=== PATIENT | female | born 1940 | race Caucasian/White ===

== ENCOUNTER 2019-06-17 08:37 | Outpatient (RCR) | payer MEDICARE | END 2019-09-15 | disposition home or self-care (01) | LOC: CARD 08:37 | PROVIDERS: ATTEND Nurse Practitioner Family | DX: R55 Syncope and collapse (principal); I48.91 Unspecified atrial fibrillation ==

== ENCOUNTER 2020-09-19 15:00 | Observation (INO) | payer MEDICARE ==
[~2020-09-19] VITALS: Ht 145 cm; Wt 45.5 kg
[2020-09-19] MEDS ORDERED: LACTATED RINGERS 1,000 ML IV ONE (15:15)
--- NOTE | 2020-09-19 15:17 | ED Cough/URI ---
General Stated Complaint: AMS Source: patient, EMS Exam Limitations: no limitations History of Present Illness Date Seen by Provider: Sep 19, 2020 Time Seen by Provider: 14:51 Initial Comments Patient to the ER by EMS from her home near [place] with chief complaint that she is having in the past 3 days of a nonproductive cough, nausea vomiting and frequency of urination. She has had multiple exposures to people who have tested positive for COVID-19. She has not had a COVID-19 vaccination. She is had subjective fevers and chills. She has not been tested. She is not a smoker however she used to smoke. No chest pain diarrhea or constipation. She lives at home with her daughter who does not have any symptoms. Allergies and Home Medications Allergies Coded Allergies: No Known Drug Allergies (Unverified , 09/19/20) Patient Home Medication List Home Medication List Reviewed: Yes Review of Systems Review of Systems Constitutional: chills, fever, malaise, weakness EENTM: No ear discharge, No ear pain Respiratory: cough; No phlegm; short of breath; No wheezing Cardiovascular: No edema, No palpitations Gastrointestinal: No abdominal pain, No constipation, No diarrhea, No nausea, No vomiting Genitourinary: No discharge, No dysuria, No frequency : No Musculoskeletal: No back pain, No joint pain Skin: No pruritus, No rash Psychiatric/Neurological: Denies Headache, Denies Numbness All Other Systems Reviewed Negative Unless Noted: Yes Past Qkzqhkk-Esclci-Qqfokn Hx Patient Social History Tobacco Use?: No Tobacco type used: Cigarettes Smoking Status: Former Smoker Substance use?: No Physical Exam Vital Signs - First Documented 09/19/20 15:10 Temp 36.3 Pulse 96 Resp 16 B/P (MAP) 112/81 (91) Pulse Ox 94 O2 Delivery Room Air Capillary Refill : Height: '" Weight: lbs. oz. kg; BMI Method: General Appearance: mild distress, thin Eyes: Bilateral Eye Normal Inspection, Bilateral Eye PERRL, Bilateral Eye EOMI HEENT: PERRL/EOMI, normal ENT inspection, TMs normal, pharynx normal Neck: full range of motion, supple, normal inspection Respiratory: lungs clear, normal breath sounds, no respiratory distress, no acc essory muscle use Cardiovascular: normal peripheral pulses, regular rate, rhythm, no edema Gastrointestinal: normal bowel sounds, non tender, soft Extremities: non-tender, normal inspection, normal capillary refill Neurologic/Psychiatric: alert, normal mood/affect, oriented x 3 Skin: normal color, warm/dry Progress/Results/Core Measures Suspected Sepsis SIRS Temperature: Pulse: Respiratory Rate: Laboratory Tests 09/19/20 15:10: White Blood Count 4.3 Blood Pressure / Mean: Laboratory Tests 09/19/20 15:10: Creatinine 0.65, Platelet Count 168, Total Bilirubin 0.3 Results/Orders Lab Results Laboratory Tests Test 09/19/20 15:05 09/19/20 15:10 Range/Units Influenza Type A (RT-PCR) Not Detected Not Detecte Influenza Type B (RT-PCR) Not Detected Not Detecte SARS-CoV-2 RNA (RT-PCR) Detected H Not Detecte White Blood Count 4.3 4.3-11.0 10^3/uL Red Blood Count 3.98 3.80-5.11 10^6/uL Hemoglobin 13.2 11.5-16.0 g/dL Hematocrit 41 35-52 % Mean Corpuscular Volume 103 H 80-99 fL Mean Corpuscular Hemoglobin 33 25-34 pg Mean Corpuscular Hemoglobin Concent 32 32-36 g/dL Red Cell Distribution Width 12.4 10.0-14.5 % Platelet Count 168 130-400 10^3/uL Mean Platelet Volume 11.7 9.0-12.2 fL Immature Granulocyte % (Auto) 1 % Neutrophils (%) (Auto) 81 H 42-75 % Lymphocytes (%) (Auto) 13 12-44 % Monocytes (%) (Auto) 5 0-12 % Eosinophils (%) (Auto) 0 0-10 % Basophils (%) (Auto) 0 0-10 % Neutrophils # (Auto) 3.5 1.8-7.8 10^3/uL Lymphocytes # (Auto) 0.6 L 1.0-4.0 10^3/uL Monocytes # (Auto) 0.2 0.0-1.0 10^3/uL Eosinophils # (Auto) 0.0 0.0-0.3 10^3/uL Basophils # (Auto) 0.0 0.0-0.1 10^3/uL Immature Granulocyte # (Auto) 0.0 0.0-0.1 10^3/uL D-Dimer 0.77 H 0.00-0.49 UG/ML Sodium Level 139 135-145 MMOL/L Potassium Level 3.8 3.6-5.0 MMOL/L Chloride Level 101 98-107 MMOL/L Carbon Dioxide Level 22 21-32 MMOL/L Anion Gap 16 H 5-14 MMOL/L Blood Urea Nitrogen 14 7-18 MG/DL Creatinine 0.65 0.60-1.30 MG/DL Estimat Glomerular Filtration Rate 87 BUN/Creatinine Ratio 22 Glucose Level 84 70-105 MG/DL Calcium Level 8.8 8.5-10.1 MG/DL Corrected Calcium 9.3 8.5-10.1 MG/DL Total Bilirubin 0.3 0.1-1.0 MG/DL Aspartate Amino Transf (AST/SGOT) 42 H 5-34 U/L Alanine Aminotransferase (ALT/SGPT) 15 0-55 U/L Alkaline Phosphatase 64 40-136 U/L C-Reactive Protein High Sensitivity 1.02 H 0.00-0.50 MG/DL Total Protein 6.1 L 6.4-8.2 GM/DL Albumin 3.4 3.2-4.5 GM/DL Procalcitonin 0.06 <0.10 NG/ML My Orders Orders - HORTENCIA DELGADO Ed Iv/Invasive Line Start (09/19/20 15:10) Lactated Ringers (Lr 1000 Ml Iv Solution (09/19/20 15:15) Covid 19 Inhouse Test (09/19/20 15:10) Influenza A And B By Pcr (09/19/20 15:10) Cbc With Automated Diff (09/19/20 15:10) Comprehensive Metabolic Panel (09/19/20 15:10) Hs C Reactive Protein (09/19/20 15:10) Fibrin Degradation Products (09/19/20 15:10) Procalcitonin (Pct) (09/19/20 15:10) Ua Culture If Indicated (09/19/20 15:10) Ondansetron Injection (Zofran Injectio (09/19/20 15:30) Medications Given in ED Current Medications Medications Dose Ordered Sig/Darrin Route Start Time Stop Time Status Last Admin Dose Admin Lactated Ringer's 1,000 ml @ 0 mls/hr Q0M ONCE IV 09/19/20 15:15 09/19/20 15:16 DC 09/19/20 15:23 1,000 MLS/HR Ondansetron HCl 8 mg ONCE ONCE IVP 09/19/20 15:30 09/19/20 15:31 DC 09/19/20 15:24 8 MG Vital Signs/I&O 09/19/20 15:10 Temp 36.3 Pulse 96 Resp 16 B/P (MAP) 112/81 (91) Pulse Ox 94 O2 Delivery Room Air Capillary Refill : Progress Note #1: Time: 15:16 Progress Note Patient is in relatively minimal distress at this time. She has had some nausea and vomiting so going to give her Zofran, a liter of fluids which would be about 20 mL/kg to help rehydrate her and check some labs including a Covid screen, influenza and chest x-ray. Suspicious for a viral syndrome. Progress Note #2: Time: 16:39 Progress Note Discussed the case with the daughter and she says she is oxygen dependent and recently getting off of an exacerbation of COPD. She says she has not been able to adequately care for her mother for the past 3 days. The neck step was to move her mother into a assisted living home however since the last 3 days she is not been able to get her up off the commode or out of bed very easily because of the patient's progressive weakness she feels the patient would be better served in a half-way just has not started the process yet. Discussed the patient doing an observation stay for placement to a half-way to get help with her weakness and the patient is okay with this plan. Plan is to put her on observation for her physical debility likely worsened by her Covid. She is not being admitted for Covid directly. She does not need oxygen. We discussed the risks, benefits and alternatives to using monoclonal antibodies and their use under an emergency use authorization. We discussed inherent risks and benefits and the patient is okay with using these as well as her daughter. Diagnostic Imaging Diagonstic Imaging: Xray Plain Films/CT/US/NM/MRI: chest Reviewed: Reviewed by Me Departure Communication (Admissions) Time/Spoke to Admitting Phy: 16:40 Discussed the case with Dr. Moreira and he agrees to observe the patient and consult social welfare research worker for placement into a half-way. He also agrees with initiating monoclonal antibody treatment in the morning. Patient is being observed for her physical debility inability to go home and for placement into a half-way not directly for her Covid diagnosis and therefore would still be a candidate for monoclonal antibodies. Impression Primary Impression: COVID-19 Additional Impression: Physical debility Disposition: ADMITTED INPATIENT Condition: Stable Admissions Decision to Admit Reason: Admit from ER (General) Decision to Admit/Date: Sep 19, 2020 Time/Decision to Admit Time: 16:30 Departure-Patient Inst. Referrals: NO,LOCAL PHYSICIAN (PCP/Family) Primary Care Physician HORTENCIA DELGADO Sep 19, 2020 15:17
[2020-09-19 15:29] LABS: BASOPHILS % (AUTO) 0 % (0-10); EOSINOPHILS % (AUTO) 0 % (0-10); HEMATOCRIT 41 % (35-52); HEMOGLOBIN 13.2 g/dL (11.5-16.0); LYMPHOCYTES # (AUTO) 0.6 10^3/uL (1.0-4.0); LYMPHOCYTES % (AUTO) 13 % (12-44); MEAN CORPUSCULAR HEMOGLOBIN 33 pg (25-34); MEAN CORPUSCULAR HGB CONC 32 g/dL (32-36); MEAN CORPUSCULAR VOLUME 103 fL (80-99); MEAN PLATELET VOLUME 11.7 fL (9.0-12.2); MONOCYTES # (AUTO) 0.2 10^3/uL (0.0-1.0); MONOCYTES % (AUTO) 5 % (0-12); NEUTROPHILS # (AUTO) 3.5 10^3/uL (1.8-7.8); NEUTROPHILS % (AUTO) 81 % (42-75); PLATELET COUNT 168 10^3/uL (130-400); WHITE BLOOD COUNT 4.3 10^3/uL (4.3-11.0)
[2020-09-19] MEDS ORDERED: ONDANSETRON 4 MG/2 ML (SDV) Z0FRAN IVP ONE (15:30)
[2020-09-19 15:36] LABS: ALBUMIN 3.4 GM/DL (3.2-4.5); POTASSIUM 3.8 MMOL/L (3.6-5.0)
[2020-09-19 15:38] LABS: CALCIUM 8.8 MG/DL (8.5-10.1)
[2020-09-19 15:39] LABS: TOTAL PROTEIN 6.1 GM/DL (6.4-8.2)
[2020-09-19 15:40] LABS: BILIRUBIN,TOTAL 0.3 MG/DL (0.1-1.0)
[2020-09-19 15:43] LABS: CREATININE SERUM 0.65 MG/DL (0.60-1.30)
[2020-09-19 17:00] LABS: CLARITY,URINE SL CLOUDY; COLOR,URINE DARK YELLOW; GLUCOSE, URINE (UA) NEGATIVE (NEGATIVE); KETONES,URINE 2+ (NEGATIVE); LEUKOCYTE ESTERASE ,URINE 1+ (NEGATIVE); NITRITE,URINE NEGATIVE (NEGATIVE); PH,URINE 5.5 (5-9); PROTEIN,URINE 1+ (NEGATIVE)
[2020-09-19 17:14] LABS: BACTERIA,URINE MODERATE /HPF; BILIRUBIN,URINE 1+ (NEGATIVE); SQUAMOUS EPITHELIAL CELL,UR 0-2 /HPF
[2020-09-19 18:19] VITALS: BP 112/81
[2020-09-19] MEDS ORDERED: RT-ALBUTEROL HFA 8.5 GM INHALER IH PRN (18:30)
[2020-09-19] MEDS ORDERED: ONDANSETRON 4 MG/2 ML (SDV) Z0FRAN IV PRN (18:45)
[2020-09-19] MEDS ORDERED: ACETAMINOPHEN 325 MG TABLET PO PRN (18:45)
[2020-09-19] MEDS ORDERED: EPINEPHrine INJECTION 1 MG/ML AMP IM PRN (19:00)
[2020-09-19] MEDS ORDERED: diphenhydrAMINE 50 MG/ML INJ (BENADRYL) IVP PRN (19:00)
[2020-09-19] MEDS ORDERED: MELO15TA39 PO (19:04)
[2020-09-19] MEDS ORDERED: FERR324T PO (19:04)
[2020-09-19] MEDS ORDERED: METO-333 PO (19:04)
[2020-09-19] MEDS ORDERED: ATOR20TA49 PO (19:04)
[2020-09-19 19:07] VITALS: BP 152/92
[2020-09-19] MEDS ORDERED: CASIRIVIMAB/IMDEVIMAB 1,200 MG in NS (IVPB) 250 ML IV SCH (20:00)
[2020-09-19] MEDS ORDERED: CATHETER FLUSH 10 ML SYR IV PRN (20:15)
[2020-09-19] MEDS: CATHETER FLUSH 10 ML SYR IV SCH (20:42)
[2020-09-19 23:30] VITALS: BP 125/70
[2020-09-20] VITALS (8 sets, daily range): BP systolic 93–166; BP diastolic 57–85
[2020-09-20 05:51] LABS: BASOPHILS % (AUTO) 1 % (0-10); EOSINOPHILS % (AUTO) 0 % (0-10); HEMATOCRIT 40 % (35-52); HEMOGLOBIN 12.6 g/dL (11.5-16.0); LYMPHOCYTES # (AUTO) 0.9 10^3/uL (1.0-4.0); LYMPHOCYTES % (AUTO) 23 % (12-44); MEAN CORPUSCULAR HEMOGLOBIN 33 pg (25-34); MEAN CORPUSCULAR HGB CONC 32 g/dL (32-36); MEAN CORPUSCULAR VOLUME 105 fL (80-99); MEAN PLATELET VOLUME 11.7 fL (9.0-12.2); MONOCYTES # (AUTO) 0.2 10^3/uL (0.0-1.0); MONOCYTES % (AUTO) 6 % (0-12); NEUTROPHILS # (AUTO) 2.7 10^3/uL (1.8-7.8); NEUTROPHILS % (AUTO) 71 % (42-75); PLATELET COUNT 178 10^3/uL (130-400); WHITE BLOOD COUNT 3.8 10^3/uL (4.3-11.0)
[2020-09-20 06:07] LABS: POTASSIUM 3.3 MMOL/L (3.6-5.0)
[2020-09-20 06:08] LABS: CALCIUM 8.7 MG/DL (8.5-10.1)
[2020-09-20 06:13] LABS: CREATININE SERUM 0.69 MG/DL (0.60-1.30)
[2020-09-20] MEDS: CATHETER FLUSH 10 ML SYR IV SCH ×3 (06:29→21:19)
[2020-09-20] MEDS ORDERED: CASIRIVIMAB/IMDEVIMAB 1,200 MG in NS (IVPB) 250 ML IV ONE (11:00)
--- NOTE | 2020-09-20 11:18 | Physical Therapy Evaluation ---
PT Evaluation-General Medical Diagnosis Admission Date Sep 19, 2020 at 16:35 Medical Diagnosis: Covid Onset Date: Sep 19, 2020 Therapy Diagnosis Therapy Diagnosis: debility/weakness Precautions Precautions/Isolations: Contact Isolation, Droplet Isolation Referral Physician: Naomi Reason for Referral: Evaluation/Treatment Medical History Pertinent Medical History: COPD (O2 dependent at home per report) Current History EMS secondary to SOA, N&V (- vac) Reviewed History: Yes Social History Home: Single Level Current Living Status: Children Prior Prior Level of Function SCALE: Activities may be completed with or without assistive devices. 5-Iwfbdgrkdt-xnokvpn completes the activity by him/herself with no assistance from a helper. 5-Set-up or Clean-up Assistance-helper sets up or cleans up; patient completes activity. [place] assists only prior to or following the activity. 4-Supervision or Touching Assistance-helper provides verbal cues and/or touching/steadying and/or contact guard assistance as patient completes activity. Assistance may be provided throughout the activity or intermittently. 3-Partial/Moderate Assistance-helper does LESS THAN HALF the effort. [place] lifts, holds or supports trunk or limbs, but provides less than half the effort. 2-Substantial/Maximal Assistance-helper does MORE THAN HALF the effort. [place] lifts or holds trunk or limbs and provides more than half the effort. 1-Xgmtmeors-otjaiu does ALL the effort. Patient does none of the effort to complete the activity. Or, the assistance of 2 or more helpers is required for the patient to complete the activity. If activity was not attempted, code reason: 7-Patient Refused. 9-Not Applicable-not attempted and the patient did not perform the activity before the current illness, exacerbation or injury. 10-Not Attempted due to Environmental Limitations-(lack of equipment, weather restraints, etc.). 88-Not Attempted due to Medical Conditions or Safety Concerns. Bed Mobility: 6 Transfers (B,C,W/C): 6 Gait: 6 Indoor Mobility (Ambulation): Independent Prior Devices Use: Walker PT Evaluation-Current Subjective Patient agrees to PT. Objective Patient Orientation: Normal For Age ROM/Strength ROM Lower Extremities bilateral LE WFL Strength Lower Extremities 3+/5 grossly bilateral LE Integumentary/Posture Integumentary refer to nursing notes Bowel Incontinence: No Bladder Incontinence: No Posture kyphotic Neuromuscular (Tone, Coordination, Reflexes) grossly intact Sensory Vision: Functional Hearing: Impaired Transfers Roll Left to Right (QC): 6 Lying to Sitting/Side of Bed(Q: 6 Sit to Stand (QC): 4 Chair/Kme-nz-Ppdgm Xfer(QC): 4 Gait Does the Patient Walk?: Yes Mode of Locomotion: Walk Anticipated Mode of Locomotion: Walk Walk 10 feet (QC): 4 (SBA) Walk 50 ft with 2 Turns(QC): 4 (SBA) Walk 150 ft (QC): 4 (SBA) Distance: 150' in room Gait Assistive Device: FWW Comments/Gait Description shuffle gait sequence Balance Sitting Static: Normal Sitting Dynamic: Normal Standing Static: Fair Standing Dynamic: Fair Assessment/Needs 80 y.o. female, will be seen short term by skilled PT to address functional strength and mobility to ensure safe return to home or care facility at maximum LOF. Rehab Potential: Fair PT Director Of Business Services Goals Director Of Business Services Goals PT Director Of Business Services Goals Time Frame: Oct 02, 2020 Roll Left & Right (QC): 6 Sit to Lying (QC): 6 Lying-Sitting on Side/Bed(QC): 6 Sit to Stand (QC): 6 Chair/Hts-gs-Kbojv Xfer(QC): 6 Toilet Transfer (QC): 6 Does the Patient Walk: Yes Walk 10 feet (QC): 6 Walk 50ft with 2 Turns (QC): 6 Walk 150 ft (QC): 6 PT Plan Problem List Problem List: Activity Tolerance, Functional Strength, Safety, Balance, Gait, Transfer Treatment/Plan Treatment Plan: Continue Plan of Care Treatment Plan: Bed Mobility, Education, Functional Activity Jacob, Functional Strength, Gait, Safety, Therapeutic Exercise, Transfers Treatment Duration: Oct 02, 2020 Frequency: 5 times per week Estimated Hrs Per Day: .25 hour per day Patient and/or Family Agrees t: Yes Time/GCodes Time In: 1050 Time Out: 1103 Total Billed Treatment Time: 13 Total Billed Treatment 1 visit EVMod 13 min STEFANO CHAUDHARY PT Sep 20, 2020 11:18
--- NOTE | 2020-09-20 11:44 | History & Physical-Hospitalist ---
History of Present Illness HPI/Chief Complaint Pt is an 80yoCF HTN, HLD who presented to the ER due to SOB, cough, and weakness. She reports her symptoms started about 5 days ago. She has family members positive for COVID19 and was tested yesterday and is positive. She is unvaccinated against COVID. She has been quite weak and unable to care for herself at home. She was admitted due to her debility. She is not currently hypoxic. She feels better since yesterday and has no specific complaints. Source: patient Exam Limitations: no limitations Date Seen 09/20/20 Time Seen by a Provider: 11:44 Attending Physician Ana Moreira MD PCP No,Local Physician Referring Physician Date of Admission Sep 19, 2020 at 16:35 Home Medications & Allergies Home Medications Reviewed patient Home Medication Reconciliation performed by pharmacy medication reconciliations measurement technician and/or nursing. Patients Allergies have been reviewed. Allergies Allergies Coded Allergies No Known Drug Allergies (Unverified09/19/20) Past Wqvktpf-Hhvdjk-Ozxgfa Hx Patient Social History Tobacco Use?: No Tobacco type used: Cigarettes Smoking Status: Former Smoker Smokeless Tobacco Frequency: Never a User Use of E-Cig and/or Vaping dev: No Substance use?: No Alcohol Use?: No Pt feels they are or have been: No Immunizations Up To Date Tetanus Booster (TDap): Unknown Hepatitis A: No Hepatitis B: No Current Status status: No status: No Advance Directives: Yes Advance Directive Location: Home With Daughters Communicates: Verbally Primary Language: [place] Preferred Spoken Language: [place] Is interpretation needed?: No Implanted or Applied Medical D: None Review of Systems Constitutional: No chills, No fever; malaise EENTM: no symptoms reported Respiratory: cough, short of breath Cardiovascular: No chest pain Gastrointestinal: diarrhea, loss of appetite Genitourinary: No dysuria; frequency Musculoskeletal: muscle weakness Skin: no symptoms reported Psychiatric/Neurological: No Symptoms Reported Physical Exam Physical Exam Vital Signs Vital Signs - First Documented 09/19/20 09/19/20 15:10 18:19 Temp 36.3 Pulse 96 Resp 16 B/P (MAP) 112/81 (91) Pulse Ox 94 O2 Delivery Room Air FiO2 21 Capillary Refill : Less Than 3 Seconds Height, Weight, BMI Height: '" Weight: lbs. oz. kg; 23.82 BMI Method: General Appearance: No Apparent Distress, Chronically ill, Thin HEENT: PERRL/EOMI, Moist Mucous Membranes; No Scleral Icterus (L), No Scleral Icterus (R) Neck: Normal Inspection, Supple Respiratory: Lungs Clear, No Accessory Muscle Use, No Respiratory Distress Cardiovascular: Regular Rate, Rhythm, No JVD, No Murmur Gastrointestinal: Normal Bowel Sounds, Non Tender, Soft Extremity: Normal Capillary Refill, No Calf Tenderness, No Pedal Edema Neurologic/Psychiatric: Alert, Oriented x3, Normal Mood/Affect Results Results/Procedures Labs Laboratory Tests 09/19/20 15:10 09/20/20 05:34 Patient resulted labs reviewed. Assessment/Plan Admission Diagnosis Debility due to COVID19 Admission Status: Observation Reason for Inpatient Admission: see below Assessment and Plan Debility due to COVID19 quite weak on presenation but not hypoxic Will arrange for Regeneron today as still within window No other COVID treatment indicated at this time PT/OT May need placement pending hospital course HTN HLD Continue home meds when med rec done DVT ppx: Lovenox Diagnosis/Problems Diagnosis/Problems (1) COVID-19 Status: Acute (2) Physical debility Status: Acute ALON STEVE MD Sep 20, 2020 11:44
[2020-09-20] MEDS ORDERED: ENOXAPARIN 40 MG/0.4 ML (LOVENOX) SYR SQ SCH (13:00)
[2020-09-20] MEDS: cefTRIAXone 1,000 MG in WATER (STERILE) FOR INJECTION 10 ML IV SCH (13:34)
[2020-09-20] MEDS ORDERED: DOCU100C37 PO (14:28)
[2020-09-20] MEDS ORDERED: ACET-2267 PO (14:28)
[2020-09-20] MEDS ORDERED: ASPI325T32 PO (14:28)
--- NOTE | 2020-09-20 14:50 | Occupational Therapy Eval ---
OT Evaluation-General/PLF Medical Diagnosis Admission Date Sep 19, 2020 at 16:35 Medical Diagnosis: Covid Onset Date: Sep 19, 2020 Therapy Diagnosis Therapy Diagnosis: Weakness,Decreased ADl skills Precautions Precautions/Isolations: Contact Isolation, Droplet Isolation Weight Bear Status Weight Bearing Restriction: Weight Bearing/Tolerated Referral Physician: Dr. Moreira Referral Reason: Activity Tolerance, Self Care, Evaluation/Treatment, Strengthening/ROM Medical History Pertinent Medical History: COPD Current History Pt. from home via EMS with cough, nausea, and vomiting. Pt. not vaccinated. Reviewed History: Yes Social History Home: Single Level Current Living Status: Children (Daughter) Entry Into Home: Level Entry ADL-Prior Level of Function SCALE: Activities may be completed with or without assistive devices. 8-Fblqjcogan-juafcrj completes the activity by him/herself with no assistance from a helper. 5-Set-up or Clean-up Assistance-helper sets up or cleans up; patient completes activity. [place] assists only prior to or following the activity. 4-Supervision or Touching Assistance-helper provides verbal cues and/or touching/steadying and/or contact guard assistance as patient completes activity. Assistance may be provided throughout the activity or intermittently. 3-Partial/Moderate Assistance-helper does LESS THAN HALF the effort. [place] lifts, holds or supports trunk or limbs, but provides less than half the effort. 2-Substantial/Maximal Assistance-helper does MORE THAN HALF the effort. [place] lifts or holds trunk or limbs and provides more than half the effort. 7-Tnfaaxjfk-hltxou does ALL the effort. Patient does none of the effort to complete the activity. Or, the assistance of 2 or more helpers is required for the patient to complete the activity. If activity was not attempted, code reason: 7-Patient Refused. 9-Not Applicable-not attempted and the patient did not perform the activity before the current illness, exacerbation or injury. 10-Not Attempted due to Environmental Limitations-(lack of equipment, weather restraints, etc.). 88-Not Attempted due to Medical Conditions or Safety Concerns. ADL PLOF Comments Pt. states that she lives with her daughter. Her daughter assists her with bathing and sometimes dressing. However, she reports that when she is able, she plans to move to a "assisted" because her daughter can't take care of her. When OT asks what she means, she states that her daughter has COPD and is on oxygen. Self Care: Needed Some Help Functional Cognition: Independent DME/Equipment: Bath Chair, Tub/Shower DME/Equipment Comments Pt. has a 4 wheeled [address] with seat. Drive Self: No OT Current Status Subjective No pain reported. Appearance Pt. up in chair. She states that she has been up since this morning, and is comfortable. She declines going back to bed at this time. Mental Status/Objective Patient Orientation: Person, Place, Time, Situation Attachments: IV ADL-Treatment Eating (QC): 5 On/Off Footwear (QC): 6 Toileting Hygiene (QC): 4 (Per pt, she had went to the bathroom just earlier.) Other Treatments Pt. stood from chair with SBA. Ambulated with walker to the door and back, slow steady gait. No LOB noted. Pt. back in chair. Declines getting back to bed to rest. Pt. states that she is comfortable in chair. All needs met. Education OT Patient Education: Correct positioning, Modified ADL techniques, Progress toward Goal/Update tx plan, Purpose of tx/functional activities, Reviewed precautions, Rehab process, Transfer techniques Teaching Recipient: Patient Teaching Methods: Demonstration, Discussion Response to Teaching: Verbalize Understanding, Return Demonstration OT Psychiatry Adult Physician Goals Care Home Goals Time Frame: Sep 27, 2020 Eating (QC): 6 Oral Hygiene (QC): 6 Toileting Hygiene (QC): 6 Upper Body Dressing (QC): 4 Lower Body Dressing (QC): 4 On/Off Footwear (QC): 5 Additional Goals: 1-Demonstrate ADL Tasks, 2-Verbalize Understanding, 3- ImproveStrength/Jacob 1=Demonstrate adherence to instructed precautions during ADL tasks. 2=Patient will verbalize/demonstrate understanding of assistive devices/modifications for ADL. 3=Patient will improve strength/tolerance for activity to enable patient to perform ADL's. OT Education/Plan Problem List/Assessment Assessment: Decreased Activ Tolerance Discharge Recommendations Plan/Recommendations: Continue POC Therapy Discharge Recommendati: Post Acute OT Treatment Plan/Plan of Care Treatment,Training & Education: Yes Patient would benefit from OT for education, treatment and training to promote independence in ADL's, mobility, safety and/or upper extremity function for ADL's. Plan of Care: ADL Retraining, Functional Mobility, UE Funct Exercise/Act Treatment Duration: Sep 27, 2020 Frequency: 5 times per week Estimated Hrs Per Day: .25 hour per day Agreement: Yes Rehab Potential: Good Time/GCodes Start Time: 13:35 Stop Time: 13:55 Total Time Billed (hr/min): 20 Billed Treatment Time 1, DELROY NICOLE OT Sep 20, 2020 14:50
[2020-09-21 03:23] VITALS: BP 131/76
[2020-09-21] MEDS: CATHETER FLUSH 10 ML SYR IV SCH ×2 (05:46→14:51)
[2020-09-21 08:00] VITALS: BP 100/64
[2020-09-21 12:00] VITALS: BP 123/77
--- NOTE | 2020-09-21 12:04 | Physical Therapy Daily Note ---
PT Daily Note-Current Subjective Patient agrees to PT. Requests toilet use. Mental Status Patient Orientation: Normal For Age Transfers SCALE: Activities may be completed with or without assistive devices. 5-Xyppqvjsvd-wfatgaa completes the activity by him/herself with no assistance from a helper. 5-Set-up or Clean-up Assistance-helper sets up or cleans up; patient completes activity. [place] assists only prior to or following the activity. 4-Supervision or Touching Assistance-helper provides verbal cues and/or touching/steadying and/or contact guard assistance as patient completes activity. Assistance may be provided throughout the activity or intermittently. 3-Partial/Moderate Assistance-helper does LESS THAN HALF the effort. [place] lifts, holds or supports trunk or limbs, but provides less than half the effort. 2-Substantial/Maximal Assistance-helper does MORE THAN HALF the effort. [place] lifts or holds trunk or limbs and provides more than half the effort. 7-Lmeufasal-qufsmq does ALL the effort. Patient does none of the effort to complete the activity. Or, the assistance of 2 or more helpers is required for the patient to complete the activity. If activity was not attempted, code reason: 7-Patient Refused. 9-Not Applicable-not attempted and the patient did not perform the activity before the current illness, exacerbation or injury. 10-Not Attempted due to Environmental Limitations-(lack of equipment, weather restraints, etc.). 88-Not Attempted due to Medical Conditions or Safety Concerns. Lying to Sitting/Side of Bed(Q: 6 Sit to Stand (QC): 6 Chair/Jxb-me-Wcyxm Xfer(QC): 6 Gait Training Does the Patient Walk?: Yes Distance: 75' Walk 10 feet (QC): 6 Walk 50 ft with 2 Turns(QC): 6 Gait Assistive Device: FWW safe and functional with FWW use Exercises Seated Therapy Exercises: Ankle pumps, Long arc quads Seated Reps: 15 Assessment Patient up in recliner with need met. Improved mobility. PT Penitentiary Goals Penitentiary Goals PT Independent Jeweler Goals Time Frame: Oct 02, 2020 Roll Left & Right (QC): 6 Sit to Lying (QC): 6 Lying-Sitting on Side/Bed(QC): 6 Sit to Stand (QC): 6 Chair/Yud-zr-Dphnf Xfer(QC): 6 Toilet Transfer (QC): 6 Does the Patient Walk: Yes Walk 10 feet (QC): 6 Walk 50ft with 2 Turns (QC): 6 Walk 150 ft (QC): 6 PT Plan Treatment/Plan Treatment Plan: Continue Plan of Care Treatment Plan: Bed Mobility, Education, Functional Activity Jacob, Functional Strength, Gait, Safety, Therapeutic Exercise, Transfers Treatment Duration: Oct 02, 2020 Frequency: 5 times per week Estimated Hrs Per Day: .25 hour per day Patient and/or Family Agrees t: Yes Time/GCodes Time In: 1115 Time Out: 1127 Total Billed Treatment Time: 12 Total Billed Treatment 1 visit FA 12 min STEFANO CHAUDHARY PT Sep 21, 2020 12:04
[2020-09-21] MEDS: ENOXAPARIN 30 MG/0.3 ML (LOVENOX) SYR SC SCH (12:40)
[2020-09-21] MEDS: cefTRIAXone 1,000 MG in WATER (STERILE) FOR INJECTION 10 ML IV SCH (12:40)
--- NOTE | 2020-09-21 13:36 | Progress Note - Hospitalist ---
Subjective HPI/CC On Admission Date Seen by Provider: Sep 21, 2020 Time Seen by Provider: 13:33 Pt is an 80yoCF HTN, HLD who presented to the ER due to SOB, cough, and weakness. She reports her symptoms started about 5 days ago. She has family members positive for COVID19 and was tested yesterday and is positive. She is unvaccinated against COVID. She has been quite weak and unable to care for herself at home. She was admitted due to her debility. She is not currently hypoxic. She feels better since yesterday and has no specific complaints. Subjective/Events-last exam Pt reports doing well and feeling much better. She is requesting discharge home. Discussed with her that family is unable to care for her at home at this time. I attempted to call daughter but no answer. Objective Exam Vital Signs Vital Signs Date Time Temp Pulse Resp B/P (MAP) Pulse Ox O2 Delivery O2 Flow Rate FiO2 09/21/20 12:00 36.0 88 18 123/77 (92) 92 Room Air 09/21/20 08:00 0.00 09/19/20 18:19 21 Capillary Refill : Less Than 3 Seconds General Appearance: No Apparent Distress, Thin Respiratory: Lungs Clear, No Respiratory Distress Cardiovascular: Regular Rate, Rhythm, No Murmur Extremity: No Calf Tenderness, No Pedal Edema Neurologic/Psychiatric: Alert, Oriented x3 Results/Procedures Lab Patient resulted labs reviewed. Assessment/Plan Assessment and Plan Assess & Plan/Chief Complaint Debility due to COVID19 quite weak on presentation but not hypoxic s/p Regeneron 09/20 No other COVID treatment indicated at this time PT/OT May need placement pending hospital course Doing well HTN HLD Continue home meds when med rec done DVT ppx: Lovenox Diagnosis/Problems Diagnosis/Problems (1) COVID-19 Status: Acute (2) Physical debility Status: Acute ALON STEVE MD Sep 21, 2020 13:36
--- NOTE | 2020-09-21 13:52 | Occupational Ther Daily Note ---
OT Current Status-Daily Note Subjective No pain reported. Appearance Pt. up in chair. Agrees to work with OT. Mental Status/Objective Patient Orientation: Person, Place, Time, Situation ADL-Treatment Therapy Code Descriptions/Definitions Functional [place] Measure: 0=Not Assessed/NA 4=Minimal Assistance 1=Total Assistance 5=Supervision or Setup 2=Maximal Assistance 6=Modified [place] 3=Moderate Assistance 7=Complete IndependenceSCALE: Activities may be completed with or without assistive devices. 6-Rmjwqukeln-mmeajoi completes the activity by him/herself with no assistance from a helper. 5-Set-up or Clean-up Assistance-helper sets up or cleans up; patient completes activity. [place] assists only prior to or following the activity. 4-Supervision or Touching Assistance-helper provides verbal cues and/or touching/steadying and/or contact guard assistance as patient completes activity. Assistance may be provided throughout the activity or intermittently. 3-Partial/Moderate Assistance-helper does LESS THAN HALF the effort. [place] lifts, holds or supports trunk or limbs, but provides less than half the effort. 2-Substantial/Maximal Assistance-helper does MORE THAN HALF the effort. [place] lifts or holds trunk or limbs and provides more than half the effort. 5-Spyorwndx-ictcfx does ALL the effort. Patient does none of the effort to complete the activity. Or, the assistance of 2 or more helpers is required for the patient to complete the activity. If activity was not attempted, code reason: 7-Patient Refused. 9-Not Applicable-not attempted and the patient did not perform the activity before the current illness, exacerbation or injury. 10-Not Attempted due to Environmental Limitations-(lack of equipment, weather restraints, etc.). 88-Not Attempted due to Medical Conditions or Safety Concerns. Upper Body Dressing (QC): 4 (SBA in stance to doff shirt.) Lower Body Dressing (QC): 3 (Pt. able to stand, doff pants over hips, and then sit to pull off feet. She is unable to fully get them off feet, and so OT ass ists with doffing off feet.) On/Off Footwear: 5 (Pt. able to doff/don slippers with set up.) Toileting Hygiene (QC): 4 (CGA in stance to cleanse self after urination, and pull up brief over hips.) Toilet Transfer (QC): 4 (CGA to transfer to and from toilet.) Other Treatment Pt. up in chair. Agrees to work with OT. Ambulated to bathroom with CGA and walker. Toileted with CGA. Pt. up in chair with all needs met at end of session. Education OT Patient Education: Correct positioning, Modified ADL techniques, Progress toward Goal/Update tx plan, Purpose of tx/functional activities, Reviewed precautions, Rehab process, Transfer techniques Teaching Recipient: Patient Teaching Methods: Demonstration, Discussion Response to Teaching: Verbalize Understanding, Return Demonstration OT [facility] Goals News Commentator Goals Time Frame: Sep 27, 2020 Eating (QC): 6 Oral Hygiene (QC): 6 Toileting Hygiene (QC): 6 Upper Body Dressing (QC): 4 Lower Body Dressing (QC): 4 On/Off Footwear (QC): 5 Additional Goals: 1-Demonstrate ADL Tasks, 2-Verbalize Understanding, 3- ImproveStrength/Jacob 1=Demonstrate adherence to instructed precautions during ADL tasks. 2=Patient will verbalize/demonstrate understanding of assistive devices/modifications for ADL. 3=Patient will improve strength/tolerance for activity to enable patient to perform ADL's. OT Education/Plan Problem List/Assessment Assessment: Decreased Activ Tolerance, Impaired I ADL's, Impaired Self-Care Skills Discharge Recommendations Plan/Recommendations: Continue POC Therapy Discharge Recommendati: Post Acute OT Treatment Plan/Plan of Care Treatment,Training & Education: Yes Patient would benefit from OT for education, treatment and training to promote independence in ADL's, mobility, safety and/or upper extremity function for ADL's. Plan of Care: ADL Retraining, Functional Mobility, UE Funct Exercise/Act Treatment Duration: Sep 27, 2020 Frequency: 5 times per week Estimated Hrs Per Day: .25 hour per day Agreement: Yes Rehab Potential: Good Time/GCodes Start Time: 12:20 Stop Time: 12:40 Total Time Billed (hr/min): 20 Billed Treatment Time 1, ADL DELROY MONZON OT Sep 21, 2020 13:52
[2020-09-21 15:55] VITALS: BP 147/83
[2020-09-21 19:16] VITALS: BP 136/84
[2020-09-21] MEDS: meTOprolol TARTRATE 25 MG (LOPRESSOR) TABLET PO SCH (21:18)
[2020-09-21 23:10] VITALS: BP 140/71
[2020-09-22 08:00] VITALS: BP 119/70
[2020-09-22] MEDS ORDERED: NON-FORMULARY MEDICATION 1 EA EA (Meloxicam 15 MG) PO SCH (09:00)
[2020-09-22] MEDS: ASPIRIN E.C. 325 MG (ECOTRIN) TABLET PO SCH (09:11)
[2020-09-22] MEDS: meTOprolol TARTRATE 25 MG (LOPRESSOR) TABLET PO SCH ×2 (09:12→21:09)
[2020-09-22] MEDS: MELOXICAM 7.5 MG (MOBIC) TABLET PO SCH (09:12)
--- NOTE | 2020-09-22 10:39 | Physical Therapy Daily Note ---
PT Daily Note-Current Subjective Patient is very alert and cooperative on this date. Mental Status Patient Orientation: Person, Time, Situation Transfers SCALE: Activities may be completed with or without assistive devices. 6-Qjqtgvoqrg-vtqzkhm completes the activity by him/herself with no assistance from a helper. 5-Set-up or Clean-up Assistance-helper sets up or cleans up; patient completes activity. [place] assists only prior to or following the activity. 4-Supervision or Touching Assistance-helper provides verbal cues and/or touching/steadying and/or contact guard assistance as patient completes activity. Assistance may be provided throughout the activity or intermittently. 3-Partial/Moderate Assistance-helper does LESS THAN HALF the effort. [place] lifts, holds or supports trunk or limbs, but provides less than half the effort. 2-Substantial/Maximal Assistance-helper does MORE THAN HALF the effort. [place] lifts or holds trunk or limbs and provides more than half the effort. 4-Tldevbuys-mwyqbu does ALL the effort. Patient does none of the effort to complete the activity. Or, the assistance of 2 or more helpers is required for the patient to complete the activity. If activity was not attempted, code reason: 7-Patient Refused. 9-Not Applicable-not attempted and the patient did not perform the activity before the current illness, exacerbation or injury. 10-Not Attempted due to Environmental Limitations-(lack of equipment, weather restraints, etc.). 88-Not Attempted due to Medical Conditions or Safety Concerns. Sit to Lying (QC): 6 Lying to Sitting/Side of Bed(Q: 6 Sit to Stand (QC): 5 Toilet Transfer (QC): 5 Gait Training Does the Patient Walk?: Yes Distance: 150' in room Walk 10 feet (QC): 5 Walk 50 ft with 2 Turns(QC): 5 Walk 150 ft (QC): 5 Gait Assistive Device: FWW safe and functional gait sequence/patient is use to a 4WW and takes time to navigate FWW Exercises Seated Therapy Exercises: Ankle pumps, Long arc quads Seated Reps: 15 Assessment Patient returned to bed per her request. Patient tolerated treatment well. No signs of SOA. PT System Programmer Goals Halfway Goals PT Halfway Goals Time Frame: Oct 02, 2020 Roll Left & Right (QC): 6 Sit to Lying (QC): 6 Lying-Sitting on Side/Bed(QC): 6 Sit to Stand (QC): 6 Chair/Upf-zw-Qncub Xfer(QC): 6 Toilet Transfer (QC): 6 Does the Patient Walk: Yes Walk 10 feet (QC): 6 Walk 50ft with 2 Turns (QC): 6 Walk 150 ft (QC): 6 PT Plan Treatment/Plan Treatment Plan: Continue Plan of Care Treatment Plan: Bed Mobility, Education, Functional Activity Jacob, Functional Strength, Gait, Safety, Therapeutic Exercise, Transfers Treatment Duration: Oct 02, 2020 Frequency: 5 times per week Estimated Hrs Per Day: .25 hour per day Patient and/or Family Agrees t: Yes Time/GCodes Time In: 1002 Time Out: 1012 Total Billed Treatment Time: 12 Total Billed Treatment 1 visit FA 12 min STEFANO CHAUDHARY PT Sep 22, 2020 10:39
[2020-09-22] MEDS: cefTRIAXone 1,000 MG in WATER (STERILE) FOR INJECTION 10 ML IV SCH (13:16)
[2020-09-22] MEDS: ENOXAPARIN 30 MG/0.3 ML (LOVENOX) SYR SC SCH (13:17)
--- NOTE | 2020-09-22 14:28 | Progress Note - Hospitalist ---
Subjective HPI/CC On Admission Date Seen by Provider: Sep 22, 2020 Time Seen by Provider: 14:26 Pt is an 80yoCF HTN, HLD who presented to the ER due to SOB, cough, and weakness. She reports her symptoms started about 5 days ago. She has family members positive for COVID19 and was tested yesterday and is positive. She is unvaccinated against COVID. She has been quite weak and unable to care for herself at home. She was admitted due to her debility. She is not currently hypoxic. She feels better since yesterday and has no specific complaints. Subjective/Events-last exam pt reports doing well. No complaints. Doing well with PT. She reports she has not spoken to her daughter since admission. Objective Exam Vital Signs Vital Signs Date Time Temp Pulse Resp B/P (MAP) Pulse Ox O2 Delivery O2 Flow Rate FiO2 09/22/20 08:00 Room Air 09/22/20 08:00 35.6 78 18 119/70 (86) 95 09/21/20 08:00 0.00 09/19/20 18:19 21 Capillary Refill : Less Than 3 Seconds General Appearance: No Apparent Distress, WD/WN, Thin Respiratory: Lungs Clear, No Respiratory Distress Cardiovascular: Regular Rate, Rhythm, No Murmur Neurologic/Psychiatric: Alert, Oriented x3 Results/Procedures Lab Patient resulted labs reviewed. Assessment/Plan Assessment and Plan Assess & Plan/Chief Complaint Debility due to COVID19 doing very well s/p Regeneron 09/20 No other COVID treatment indicated at this time PT/OT Family considering placement as they are her normal caretakers and unable to care for her as they are sick with COVID HTN HLD Continue home meds DVT ppx: Lovenox Diagnosis/Problems Diagnosis/Problems (1) COVID-19 Status: Acute (2) Physical debility Status: Acute ALON STEVE MD Sep 22, 2020 14:28
--- NOTE | 2020-09-22 14:32 | Occupational Ther Daily Note ---
OT Current Status-Daily Note Subjective Pt alert, lying in bed. Pt agrees to therapy. No c/o pain. Mental Status/Objective Patient Orientation: Person, Place, Time, Situation ADL-Treatment Pt able to set up own meal and uses regular utensils. Pt then requested to use BSC. Supine <--> sit, independent. Sit<-->stand, SBA. SPT to/from BSC, SBA. Clothing manipulation and hygiene, SBA. After therapy, pt lying in bed with call light/phone in reach. All needs met in room. Therapy Code Descriptions/Definitions Functional [place] Measure: 0=Not Assessed/NA 4=Minimal Assistance 1=Total Assistance 5=Supervision or Setup 2=Maximal Assistance 6=Modified [place] 3=Moderate Assistance 7=Complete IndependenceSCALE: Activities may be completed with or without assistive devices. 7-Nunpxoieum-yadvqbq completes the activity by him/herself with no assistance from a helper. 5-Set-up or Clean-up Assistance-helper sets up or cleans up; patient completes activity. [place] assists only prior to or following the activity. 4-Supervision or Touching Assistance-helper provides verbal cues and/or touching/steadying and/or contact guard assistance as patient completes activity. Assistance may be provided throughout the activity or intermittently. 3-Partial/Moderate Assistance-helper does LESS THAN HALF the effort. [place] lifts, holds or supports trunk or limbs, but provides less than half the effort. 2-Substantial/Maximal Assistance-helper does MORE THAN HALF the effort. [place] lifts or holds trunk or limbs and provides more than half the effort. 9-Vnducrhhk-jucvpq does ALL the effort. Patient does none of the effort to complete the activity. Or, the assistance of 2 or more helpers is required for the patient to complete the activity. If activity was not attempted, code reason: 7-Patient Refused. 9-Not Applicable-not attempted and the patient did not perform the activity before the current illness, exacerbation or injury. 10-Not Attempted due to Environmental Limitations-(lack of equipment, weather restraints, etc.). 88-Not Attempted due to Medical Conditions or Safety Concerns. Eating (QC): 6 On/Off Footwear: 5 (Set up only) Toileting Hygiene (QC): 4 Toilet Transfer (QC): 4 OT Senior Living Goals Senior Living Goals Time Frame: Sep 27, 2020 Eating (QC): 6 Oral Hygiene (QC): 6 Toileting Hygiene (QC): 6 Upper Body Dressing (QC): 4 Lower Body Dressing (QC): 4 On/Off Footwear (QC): 5 Additional Goals: 1-Demonstrate ADL Tasks, 2-Verbalize Understanding, 3- ImproveStrength/Jacob 1=Demonstrate adherence to instructed precautions during ADL tasks. 2=Patient will verbalize/demonstrate understanding of assistive devices/modifications for ADL. 3=Patient will improve strength/tolerance for activity to enable patient to perform ADL's. OT Education/Plan Problem List/Assessment Assessment: Decreased Activ Tolerance Discharge Recommendations Plan/Recommendations: Continue POC Treatment Plan/Plan of Care Patient would benefit from OT for education, treatment and training to promote independence in ADL's, mobility, safety and/or upper extremity function for ADL's. Plan of Care: ADL Retraining, Functional Mobility, UE Funct Exercise/Act Treatment Duration: Sep 27, 2020 Frequency: 5 times per week Estimated Hrs Per Day: .25 hour per day Agreement: Yes Rehab Potential: Good Time/GCodes Start Time: 13:10 Stop Time: 13:33 Total Time Billed (hr/min): 23 Billed Treatment Time 1 visit-FA 2 (23 min) LJ REDD Sep 22, 2020 14:31
[2020-09-22 15:52] VITALS: BP 103/58
[2020-09-22] MEDS: CEPHALEXIN 250 MG (KEFLEX) CAP PO SCH (21:09)
[2020-09-22 23:40] VITALS: BP 141/77
[2020-09-23 08:15] VITALS: BP 143/72
[2020-09-23] MEDS: ASPIRIN E.C. 325 MG (ECOTRIN) TABLET PO SCH (09:16)
[2020-09-23] MEDS: MELOXICAM 7.5 MG (MOBIC) TABLET PO SCH (09:16)
[2020-09-23] MEDS: meTOprolol TARTRATE 25 MG (LOPRESSOR) TABLET PO SCH ×2 (09:16→20:06)
[2020-09-23] MEDS: CEPHALEXIN 250 MG (KEFLEX) CAP PO SCH ×2 (09:16→20:06)
--- NOTE | 2020-09-23 11:04 | Physical Therapy Daily Note ---
PT Daily Note-Current Subjective Patient agrees to PT. Mental Status Patient Orientation: Person, Time, Situation Transfers SCALE: Activities may be completed with or without assistive devices. 5-Mjuejsixqa-mdrohjx completes the activity by him/herself with no assistance from a helper. 5-Set-up or Clean-up Assistance-helper sets up or cleans up; patient completes activity. [place] assists only prior to or following the activity. 4-Supervision or Touching Assistance-helper provides verbal cues and/or touching/steadying and/or contact guard assistance as patient completes activity. Assistance may be provided throughout the activity or intermittently. 3-Partial/Moderate Assistance-helper does LESS THAN HALF the effort. [place] lifts, holds or supports trunk or limbs, but provides less than half the effort. 2-Substantial/Maximal Assistance-helper does MORE THAN HALF the effort. [place] lifts or holds trunk or limbs and provides more than half the effort. 1-Vlbagdtur-[place] does ALL the effort. Patient does none of the effort to c omplete the activity. Or, the assistance of 2 or more helpers is required for the patient to complete the activity. If activity was not attempted, code reason: 7-Patient Refused. 9-Not Applicable-not attempted and the patient did not perform the activity before the current illness, exacerbation or injury. 10-Not Attempted due to Environmental Limitations-(lack of equipment, weather restraints, etc.). 88-Not Attempted due to Medical Conditions or Safety Concerns. Sit to Lying (QC): 6 Lying to Sitting/Side of Bed(Q: 6 Sit to Stand (QC): 6 Gait Training Does the Patient Walk?: Yes Distance: 150' Walk 10 feet (QC): 5 Walk 50 ft with 2 Turns(QC): 5 Walk 150 ft (QC): 5 Gait Assistive Device: FWW safe and functional with no deviation network programmer reports patient is up in room to toilet independently. PT to see patient x 1 more session. PT Short Term Goals Short Term Goals Time Frame: Sep 23, 2020 PT Voltage Tester Goals [facility]dc Goals PT Voltage Tester Goals Time Frame: Oct 02, 2020 Roll Left & Right (QC): 6 Sit to Lying (QC): 6 Lying-Sitting on Side/Bed(QC): 6 Sit to Stand (QC): 6 Chair/Hyo-tu-Xqqug Xfer(QC): 6 Toilet Transfer (QC): 6 Does the Patient Walk: Yes Walk 10 feet (QC): 6 Walk 50ft with 2 Turns (QC): 6 Walk 150 ft (QC): 6 PT Plan Treatment/Plan Treatment Plan: Continue Plan of Care Treatment Plan: Bed Mobility, Education, Functional Activity Jacob, Functional Strength, Gait, Safety, Therapeutic Exercise, Transfers Treatment Duration: Oct 02, 2020 Frequency: 5 times per week Estimated Hrs Per Day: .25 hour per day Patient and/or Family Agrees t: Yes Time/GCodes Time In: 1015 Time Out: 28 Total Billed Treatment Time: 13 Total Billed Treatment 1 visit FA 13 min STEFANO CHAUDHARY PT Sep 23, 2020 11:04
--- NOTE | 2020-09-23 11:33 | Occupational Ther Daily Note ---
OT Current Status-Daily Note Subjective Pt alert, lying in bed. Pt agrees to complete OT though did not want to get out of bed. No c/o pain. Mental Status/Objective Patient Orientation: Person ADL-Treatment Therapy Code Descriptions/Definitions Functional [place] Measure: 0=Not Assessed/NA 4=Minimal Assistance 1=Total Assistance 5=Supervision or Setup 2=Maximal Assistance 6=Modified [place] 3=Moderate Assistance 7=Complete IndependenceSCALE: Activities may be completed with or without assistive devices. 1-Hjppjwzdhb-vovtiqx completes the activity by him/herself with no assistance from a helper. 5-Set-up or Clean-up Assistance-helper sets up or cleans up; patient completes activity. [place] assists only prior to or following the activity. 4-Supervision or Touching Assistance-helper provides verbal cues and/or touching /steadying and/or contact guard assistance as patient completes activity. Assistance may be provided throughout the activity or intermittently. 3-Partial/Moderate Assistance-helper does LESS THAN HALF the effort. [place] lifts, holds or supports trunk or limbs, but provides less than half the effort. 2-Substantial/Maximal Assistance-helper does MORE THAN HALF the effort. [place] lifts or holds trunk or limbs and provides more than half the effort. 6-Zkmwhdzdx-afixed does ALL the effort. Patient does none of the effort to complete the activity. Or, the assistance of 2 or more helpers is required for the patient to complete the activity. If activity was not attempted, code reason: 7-Patient Refused. 9-Not Applicable-not attempted and the patient did not perform the activity before the current illness, exacerbation or injury. 10-Not Attempted due to Environmental Limitations-(lack of equipment, weather restraints, etc.). 88-Not Attempted due to Medical Conditions or Safety Concerns. Other Treatment Pt able to complete B UE exercises against gravity in while sitting up in bed. Skilled instruction for correct technique while completing horizontal shldr abd/add, internal/ext shldr rotation, bicep curls 1 set 15 reps. After therapy, pt lying in bed with call light/phone in reach. All needs met in room. OT Electric Meter Setter Goals Electric Meter Setter Goals Time Frame: Sep 27, 2020 Eating (QC): 6 Oral Hygiene (QC): 6 Toileting Hygiene (QC): 6 Upper Body Dressing (QC): 4 Lower Body Dressing (QC): 4 On/Off Footwear (QC): 5 Additional Goals: 1-Demonstrate ADL Tasks, 2-Verbalize Understanding, 3- ImproveStrength/Jacob 1=Demonstrate adherence to instructed precautions during ADL tasks. 2=Patient will verbalize/demonstrate understanding of assistive devices/modifications for ADL. 3=Patient will improve strength/tolerance for activity to enable patient to perform ADL's. OT Education/Plan Problem List/Assessment Assessment: Decreased Activ Tolerance, Decreased UE Strength Discharge Recommendations Plan/Recommendations: Continue POC Treatment Plan/Plan of Care Patient would benefit from OT for education, treatment and training to promote independence in ADL's, mobility, safety and/or upper extremity function for ADL's. Plan of Care: ADL Retraining, Functional Mobility, UE Funct Exercise/Act Treatment Duration: Sep 27, 2020 Frequency: 5 times per week Estimated Hrs Per Day: .25 hour per day Agreement: Yes Rehab Potential: Good Time/GCodes Start Time: 11:20 Stop Time: 11:30 Total Time Billed (hr/min): 10 Billed Treatment Time 1 visit-EX 1 (10 min) LJ REDD Sep 23, 2020 11:33
[2020-09-23] MEDS: ENOXAPARIN 30 MG/0.3 ML (LOVENOX) SYR SC SCH (12:32)
--- NOTE | 2020-09-23 15:01 | Progress Note - Hospitalist ---
Subjective HPI/CC On Admission Date Seen by Provider: Sep 23, 2020 Time Seen by Provider: 15:01 Pt is an 80yoCF HTN, HLD who presented to the ER due to SOB, cough, and weakness. She reports her symptoms started about 5 days ago. She has family members positive for COVID19 and was tested yesterday and is positive. She is unvaccinated against COVID. She has been quite weak and unable to care for herself at home. She was admitted due to her debility. She is not currently hypoxic. She feels better since yesterday and has no specific complaints. Subjective/Events-last exam Pt reports feeling well. I was able to talk to her daughter who is sick at home with COVID and her just got admitted for COVID. Discussed plan with patient and daughter regarding discharge plan and that pt is improving but we understand that we have to have a safe discharge plan and family is unable to care for her at this time. Objective Exam Vital Signs Vital Signs Date Time Temp Pulse Resp B/P (MAP) Pulse Ox O2 Delivery O2 Flow Rate FiO2 09/23/20 08:15 36.1 72 16 143/72 (95) 95 Room Air 09/21/20 08:00 0.00 09/19/20 18:19 21 Capillary Refill : Less Than 3 Seconds General Appearance: No Apparent Distress, Thin Respiratory: Lungs Clear, No Respiratory Distress Cardiovascular: Regular Rate, Rhythm, No Murmur Neurologic/Psychiatric: Alert, Oriented x3 Results/Procedures Lab Patient resulted labs reviewed. Assessment/Plan Assessment and Plan Assess & Plan/Chief Complaint Debility due to COVID19 doing very well s/p Regeneron 09/20 No other COVID treatment indicated at this time PT/OT Family considering placement as they are her normal caretakers and unable to care for her as they are sick with COVID Social work consulted and exhausting all options for discharge, no facility is willing to take her at this time as she is COVID positive, [facility] unable to accept for transfer due to staffing, family is pursuing private pay options as well HTN HLD Continue home meds DVT ppx: Lovenox Diagnosis/Problems Diagnosis/Problems (1) COVID-19 Status: Acute (2) Physical debility Status: Acute ALON STEVE MD Sep 23, 2020 15:01
[2020-09-23 15:52] VITALS: BP 138/77
[2020-09-23 23:20] VITALS: BP 129/86
[2020-09-24 08:00] VITALS: BP 152/92
[2020-09-24] MEDS: MELOXICAM 7.5 MG (MOBIC) TABLET PO SCH (10:34)
[2020-09-24] MEDS: ASPIRIN E.C. 325 MG (ECOTRIN) TABLET PO SCH (10:34)
[2020-09-24] MEDS: meTOprolol TARTRATE 25 MG (LOPRESSOR) TABLET PO SCH ×2 (10:34→20:46)
[2020-09-24] MEDS: CEPHALEXIN 250 MG (KEFLEX) CAP PO SCH ×2 (10:35→20:46)
--- NOTE | 2020-09-24 11:49 | Occupational Ther Daily Note ---
OT Current Status-Daily Note Subjective Pt alert, lying in bed. Pt agrees to therapy. No c/o pain. Mental Status/Objective Patient Orientation: Person, Place, Time, Situation ADL-Treatment Supine to EOB independently. Pt is independent with toileting and toilet transfer to [facility] beside bed. After set up, pt able to complete sponge bath by self. Pt dons/doffs lower body clothing by self after set up. Pt don/doffs upp er body clothing by self. Pt able to ambulate around room independently using FWW. After session, pt sitting in recliner with call light/phone in reach. All needs met in room. Therapy Code Descriptions/Definitions Functional [place] Measure: 0=Not Assessed/NA 4=Minimal Assistance 1=Total Assistance 5=Supervision or Setup 2=Maximal Assistance 6=Modified [place] 3=Moderate Assistance 7=Complete IndependenceSCALE: Activities may be completed with or without assistive devices. 6-Hmwkmgsqzq-ucxlojq completes the activity by him/herself with no assistance from a helper. 5-Set-up or Clean-up Assistance-helper sets up or cleans up; patient completes activity. [place] assists only prior to or following the activity. 4-Supervision or Touching Assistance-helper provides verbal cues and/or touching/steadying and/or contact guard assistance as patient completes activity. Assistance may be provided throughout the activity or intermittently. 3-Partial/Moderate Assistance-helper does LESS THAN HALF the effort. [place] lifts, holds or supports trunk or limbs, but provides less than half the effort. 2-Substantial/Maximal Assistance-helper does MORE THAN HALF the effort. [place] lifts or holds trunk or limbs and provides more than half the effort. 4-Yunqhhpgp-lhjwim does ALL the effort. Patient does none of the effort to complete the activity. Or, the assistance of 2 or more helpers is required for the patient to complete the activity. If activity was not attempted, code reason: 7-Patient Refused. 9-Not Applicable-not attempted and the patient did not perform the activity before the current illness, exacerbation or injury. 10-Not Attempted due to Environmental Limitations-(lack of equipment, weather restraints, etc.). 88-Not Attempted due to Medical Conditions or Safety Concerns. Shower/Bathe Self (QC): 5 Upper Body Dressing (QC): 5 Lower Body Dressing (QC): 5 On/Off Footwear: 6 Toileting Hygiene (QC): 6 Toilet Transfer (QC): 6 OT Residential Goals Lifestyle Block Farmer Goals Time Frame: Sep 27, 2020 Eating (QC): 6 Oral Hygiene (QC): 6 Toileting Hygiene (QC): 6 Upper Body Dressing (QC): 4 Lower Body Dressing (QC): 4 On/Off Footwear (QC): 5 Additional Goals: 1-Demonstrate ADL Tasks, 2-Verbalize Understanding, 3-ImproveStrength/Jacob 1=Demonstrate adherence to instructed precautions during ADL tasks. 2=Patient will verbalize/demonstrate understanding of assistive devices/modifications for ADL. 3=Patient will improve strength/tolerance for activity to enable patient to perform ADL's. OT Education/Plan Problem List/Assessment Assessment: Decreased Activ Tolerance Discharge Recommendations Plan/Recommendations: Continue POC Treatment Plan/Plan of Care Patient would benefit from OT for education, treatment and training to promote independence in ADL's, mobility, safety and/or upper extremity function for ADL's. Plan of Care: ADL Retraining, Functional Mobility, UE Funct Exercise/Act Treatment Duration: Sep 27, 2020 Frequency: 5 times per week Estimated Hrs Per Day: .25 hour per day Agreement: Yes Rehab Potential: Good Time/GCodes Start Time: 11:10 Stop Time: 11:33 Total Time Billed (hr/min): 23 Billed Treatment Time 1 visit-ADL 2 (23 min) LJ REDD Sep 24, 2020 11:49
--- NOTE | 2020-09-24 11:50 | Physical Therapy Daily Note ---
PT Daily Note-Current Subjective Patient agrees to PT. OT present. Transfers SCALE: Activities may be completed with or without assistive devices. 0-Skpfckpwhm-wwrhbco completes the activity by him/herself with no assistance from a helper. 5-Set-up or Clean-up Assistance-helper sets up or cleans up; patient completes activity. [place] assists only prior to or following the activity. 4-Supervision or Touching Assistance-helper provides verbal cues and/or touching/steadying and/or contact guard assistance as patient completes activity. Assistance may be provided throughout the activity or intermittently. 3-Partial/Moderate Assistance-helper does LESS THAN HALF the effort. [place] li fts, holds or supports trunk or limbs, but provides less than half the effort. 2-Substantial/Maximal Assistance-helper does MORE THAN HALF the effort. [place] lifts or holds trunk or limbs and provides more than half the effort. 7-Xqrgwteeg-tnydxr does ALL the effort. Patient does none of the effort to complete the activity. Or, the assistance of 2 or more helpers is required for the patient to complete the activity. If activity was not attempted, code reason: 7-Patient Refused. 9-Not Applicable-not attempted and the patient did not perform the activity before the current illness, exacerbation or injury. 10-Not Attempted due to Environmental Limitations-(lack of equipment, weather restraints, etc.). 88-Not Attempted due to Medical Conditions or Safety Concerns. Sit to Stand (QC): 4 Chair/Fdx-am-Heblk Xfer(QC): 4 Toilet Transfer (QC): 4 Gait Training Does the Patient Walk?: Yes Distance: 80' Walk 10 feet (QC): 4 Walk 50 ft with 2 Turns(QC): 4 Gait Assistive Device: FWW SBA to modified independent LOF with all mobility Assessment Patient tolerated treatment well and is up in recliner with needs met. PT Short Term Goals Short Term Goals Time Frame: Sep 23, 2020 PT [facility] Goals [facility] Goals PT [facility] Goals Time Frame: Oct 02, 2020 Roll Left & Right (QC): 6 Sit to Lying (QC): 6 Lying-Sitting on Side/Bed(QC): 6 Sit to Stand (QC): 6 Chair/Bso-qp-Dfuwx Xfer(QC): 6 Toilet Transfer (QC): 6 Does the Patient Walk: Yes Walk 10 feet (QC): 6 Walk 50ft with 2 Turns (QC): 6 Walk 150 ft (QC): 6 PT Plan Treatment/Plan Treatment Plan: Continue Plan of Care Treatment Plan: Bed Mobility, Education, Functional Activity Jacob, Functional Strength, Gait, Safety, Therapeutic Exercise, Transfers Treatment Duration: Oct 02, 2020 Frequency: 5 times per week Estimated Hrs Per Day: .25 hour per day Patient and/or Family Agrees t: Yes Time/GCodes Time In: 1115 Time Out: 1130 Total Billed Treatment Time: 15 Total Billed Treatment 1 visit FA 15 min STEFANO CHAUDHARY PT Sep 24, 2020 11:50
--- NOTE | 2020-09-24 13:20 | Progress Note - Hospitalist ---
Subjective HPI/CC On Admission Date Seen by Provider: Sep 24, 2020 Time Seen by Provider: 13:19 Pt is an 80yoCF HTN, HLD who presented to the ER due to SOB, cough, and weakness. She reports her symptoms started about 5 days ago. She has family members positive for COVID19 and was tested yesterday and is positive. She is unvaccinated against COVID. She has been quite weak and unable to care for herself at home. She was admitted due to her debility. She is not currently hypoxic. She feels better since yesterday and has no specific complaints. Subjective/Events-last exam Pt reports feeling well. Discussed plan with her for placement and she is agreeable. She comes out of isolation on 09/26 at midnight. Objective Exam Vital Signs Vital Signs Date Time Temp Pulse Resp B/P (MAP) Pulse Ox O2 Delivery O2 Flow Rate FiO2 09/24/20 08:00 95 Room Air 09/24/20 08:00 35.6 82 18 152/92 (112) 09/21/20 08:00 0.00 09/19/20 18:19 21 Capillary Refill : Less Than 3 Seconds General Appearance: No Apparent Distress, Chronically ill Respiratory: Lungs Clear, No Respiratory Distress Cardiovascular: Regular Rate, Rhythm, No Murmur Neurologic/Psychiatric: Alert, Oriented x3 Results/Procedures Lab Patient resulted labs reviewed. Assessment/Plan Assessment and Plan Assess & Plan/Chief Complaint Debility due to COVID19 doing very well s/p Regeneron 09/20 No other COVID treatment indicated at this time PT/OT Hopeful for placement on Sunday when out of isolation HTN HLD Continue home meds DVT ppx: Lovenox Diagnosis/Problems Diagnosis/Problems (1) COVID-19 Status: Acute (2) Physical debility Status: Acute ALON STEVE MD Sep 24, 2020 13:20
[2020-09-24] MEDS: ENOXAPARIN 30 MG/0.3 ML (LOVENOX) SYR SC SCH (14:40)
[2020-09-24 16:49] VITALS: BP 144/77
[2020-09-24 20:44] VITALS: BP 119/70
[2020-09-24 23:30] VITALS: BP 127/73
[2020-09-25 08:18] VITALS: BP 139/73
[2020-09-25] MEDS: meTOprolol TARTRATE 25 MG (LOPRESSOR) TABLET PO SCH ×2 (09:09→19:50)
[2020-09-25] MEDS: ASPIRIN E.C. 325 MG (ECOTRIN) TABLET PO SCH (09:09)
[2020-09-25] MEDS: CEPHALEXIN 250 MG (KEFLEX) CAP PO SCH ×2 (09:09→19:50)
[2020-09-25] MEDS: MELOXICAM 7.5 MG (MOBIC) TABLET PO SCH (09:10)
--- NOTE | 2020-09-25 11:35 | Physical Therapy Progress Note ---
Therapy Progress Note Pt in bed. States, "I would be doing much better if you all would leave me alone and just let me rest". Educated on importance of OOB and increasing activity, Pt continued to decline PT. ISELA SHANKAR DPT Sep 25, 2020 11:35
[2020-09-25] MEDS: ENOXAPARIN 30 MG/0.3 ML (LOVENOX) SYR SC SCH (11:48)
--- NOTE | 2020-09-25 13:34 | Progress Note - Hospitalist ---
Subjective HPI/CC On Admission Date Seen by Provider: Sep 25, 2020 Time Seen by Provider: 13:29 Pt is an 80yoCF HTN, HLD who presented to the ER due to SOB, cough, and weakness. She reports her symptoms started about 5 days ago. She has family members positive for COVID19 and was tested yesterday and is positive. She is unvaccinated against COVID. She has been quite weak and unable to care for herself at home. She was admitted due to her debility. She is not currently hypoxic. She feels better since yesterday and has no specific complaints. Subjective/Events-last exam Pt reports doing well. No complaints. Discussed plan still to wait until she is out of isolation for placement. She states her family is all admitted with COVID. She knows some are admitted at [facility] and one is here. Objective Exam Vital Signs Vital Signs Date Time Temp Pulse Resp B/P (MAP) Pulse Ox O2 Delivery O2 Flow Rate FiO2 09/25/20 08:18 35.6 77 18 139/73 (95) 95 Room Air 09/21/20 08:00 0.00 09/19/20 18:19 21 Capillary Refill : Less Than 3 Seconds General Appearance: No Apparent Distress, Chronically ill, Thin Respiratory: Lungs Clear, No Respiratory Distress Cardiovascular: Regular Rate, Rhythm, No Murmur Neurologic/Psychiatric: Alert, Oriented x3 Results/Procedures Lab Patient resulted labs reviewed. Assessment/Plan Assessment and Plan Assess & Plan/Chief Complaint Debility due to COVID19 doing very well s/p Regeneron 09/20 No other COVID treatment indicated at this time PT/OT Hopeful for placement on Sunday when out of isolation Doing well, unable to go home as family is admitted with COVID and she is unable to care for herself at home HTN HLD Continue home meds DVT ppx: Lovenox Diagnosis/Problems Diagnosis/Problems (1) COVID-19 Status: Acute (2) Physical debility Status: Acute ALON STEVE MD Sep 25, 2020 13:34
[2020-09-25 16:10] VITALS: BP 138/64
[2020-09-25 23:55] VITALS: BP 149/81
[2020-09-26 07:50] VITALS: BP 134/76
[2020-09-26] MEDS: MELOXICAM 7.5 MG (MOBIC) TABLET PO SCH (08:50)
[2020-09-26] MEDS: ASPIRIN E.C. 325 MG (ECOTRIN) TABLET PO SCH (08:50)
[2020-09-26] MEDS: CEPHALEXIN 250 MG (KEFLEX) CAP PO SCH ×2 (08:51→20:52)
[2020-09-26] MEDS: meTOprolol TARTRATE 25 MG (LOPRESSOR) TABLET PO SCH ×2 (08:51→20:52)
--- NOTE | 2020-09-26 12:55 | Progress Note - Hospitalist ---
Subjective HPI/CC On Admission Date Seen by Provider: Sep 26, 2020 Time Seen by Provider: 12:50 Pt is an 80yoCF HTN, HLD who presented to the ER due to SOB, cough, and weakness. She reports her symptoms started about 5 days ago. She has family members positive for COVID19 and was tested yesterday and is positive. She is unvaccinated against COVID. She has been quite weak and unable to care for herself at home. She was admitted due to her debility. She is not currently hypoxic. She feels better since yesterday and has no specific complaints. Subjective/Events-last exam Pt reports feeling ok. States she wants to go home. She otherwise has not complaints or issues. When asked about how her family is doing she believes that her daughter is hospitalized with COVID and she thinks her son in law is admit deandra here for COVID. She expressed understanding of the need to find a safe plan for DC. Objective Exam Vital Signs Vital Signs Date Time Temp Pulse Resp B/P (MAP) Pulse Ox O2 Delivery O2 Flow Rate FiO2 09/26/20 08:55 Room Air 09/26/20 07:50 36.1 77 18 134/76 (95) 95 09/21/20 08:00 0.00 Capillary Refill : Less Than 3 Seconds General Appearance: No Apparent Distress, WD/WN Respiratory: Lungs Clear, No Respiratory Distress Cardiovascular: Regular Rate, Rhythm, No Murmur Neurologic/Psychiatric: Alert, Oriented x3 Results/Procedures Lab Patient resulted labs reviewed. Assessment/Plan Assessment and Plan Assess & Plan/Chief Complaint Debility due to COVID19 doing very well s/p Regeneron 09/20 No other COVID treatment indicated at this time PT/OT Hopeful for placement on Sunday when out of isolation Doing well, unable to go home as family is admitted with COVID and she is unable to care for herself at home Appreciate all of social works work to facilitate discharge HTN HLD Continue home meds DVT ppx: Lovenox Diagnosis/Problems Diagnosis/Problems (1) COVID-19 Status: Acute (2) Physical debility Status: Acute ALON STEVE MD Sep 26, 2020 12:55
[2020-09-26] MEDS: ENOXAPARIN 30 MG/0.3 ML (LOVENOX) SYR SC SCH (13:22)
[2020-09-26 16:00] VITALS: BP 104/59
[2020-09-26 20:49] VITALS: BP 118/67
[2020-09-26 23:32] VITALS: BP 111/70
[2020-09-27 07:27] VITALS: BP 116/81
[2020-09-27] MEDS: ASPIRIN E.C. 325 MG (ECOTRIN) TABLET PO SCH (08:23)
[2020-09-27] MEDS: MELOXICAM 7.5 MG (MOBIC) TABLET PO SCH (08:24)
[2020-09-27] MEDS: meTOprolol TARTRATE 25 MG (LOPRESSOR) TABLET PO SCH ×2 (08:24→20:01)
[2020-09-27] MEDS: CEPHALEXIN 250 MG (KEFLEX) CAP PO SCH (08:24)
--- NOTE | 2020-09-27 11:22 | Physical Therapy Daily Note ---
PT Daily Note-Current Subjective Patient agrees to PT. Mental Status Patient Orientation: Normal For Age Transfers SCALE: Activities may be completed with or without assistive devices. 0-Nerdlhzoxp-kimpkkk completes the activity by him/herself with no assistance from a helper. 5-Set-up or Clean-up Assistance-helper sets up or cleans up; patient completes activity. [place] assists only prior to or following the activity. 4-Supervision or Touching Assistance-helper provides verbal cues and/or touching/steadying and/or contact guard assistance as patient completes activity. Assistance may be provided throughout the activity or intermittently. 3-Partial/Moderate Assistance-helper does LESS THAN HALF the effort. [place] lifts, holds or supports trunk or limbs, but provides less than half the effort. 2-Substantial/Maximal Assistance-helper does MORE THAN HALF the effort. [place] lifts or holds trunk or limbs and provides more than half the effort. 0-Fowrmqbkq-sfysxd does ALL the effort. Patient does none of the effort to complete the activity. Or, the assistance of 2 or more helpers is required for the patient to complete the activity. If activity was not attempted, code reason: 7-Patient Refused. 9-Not Applicable-not attempted and the patient did not perform the activity befo re the current illness, exacerbation or injury. 10-Not Attempted due to Environmental Limitations-(lack of equipment, weather re straints, etc.). 88-Not Attempted due to Medical Conditions or Safety Concerns. Lying to Sitting/Side of Bed(Q: 6 Sit to Stand (QC): 6 Chair/Snm-kh-Lgmcm Xfer(QC): 6 Gait Training Does the Patient Walk?: Yes Distance: 150' in room Walk 10 feet (QC): 6 Walk 50 ft with 2 Turns(QC): 6 Walk 150 ft (QC): 6 Gait Assistive Device: FWW safe and functional with no deviation Assessment Patient up in recliner. Per RN, patient has been up in room independently to commode. PT Short Term Goals Short Term Goals Time Frame: Sep 23, 2020 PT Reporter Goals Longterm Goals PT Reporter Goals Time Frame: Oct 02, 2020 Roll Left & Right (QC): 6 Sit to Lying (QC): 6 Lying-Sitting on Side/Bed(QC): 6 Sit to Stand (QC): 6 Chair/Zfs-mx-Mcahx Xfer(QC): 6 Toilet Transfer (QC): 6 Does the Patient Walk: Yes Walk 10 feet (QC): 6 Walk 50ft with 2 Turns (QC): 6 Walk 150 ft (QC): 6 PT Plan Treatment/Plan Treatment Plan: Continue Plan of Care Treatment Plan: Bed Mobility, Education, Functional Activity Jacob, Functional Strength, Gait, Safety, Therapeutic Exercise, Transfers Treatment Duration: Oct 02, 2020 Frequency: 5 times per week Estimated Hrs Per Day: .25 hour per day Patient and/or Family Agrees t: Yes Time/GCodes Time In: 1035 Time Out: 1045 Total Billed Treatment Time: 10 Total Billed Treatment 1 visit FA 10 min STEFANO CHAUDHARY PT Sep 27, 2020 11:22
--- NOTE | 2020-09-27 11:59 | Progress Note - Hospitalist ---
Subjective HPI/CC On Admission Date Seen by Provider: Sep 27, 2020 Time Seen by Provider: 11:57 Pt is an 80yoCF HTN, HLD who presented to the ER due to SOB, cough, and weakness. She reports her symptoms started about 5 days ago. She has family members positive for COVID19 and was tested yesterday and is positive. She is unvaccinated against COVID. She has been quite weak and unable to care for herself at home. She was admitted due to her debility. She is not currently hypoxic. She feels better since yesterday and has no specific complaints. Subjective/Events-last exam pt reports doing well. Again asking about going home. We again discussed that her family is unable to care for her. She believes her oldest daughter is supposed to be meeting with someone about meteorology instructor today. I reminded her they were previously looking at a facility for her and she just nodded. Objective Exam Vital Signs Vital Signs Date Time Temp Pulse Resp B/P (MAP) Pulse Ox O2 Delivery O2 Flow Rate FiO2 09/27/20 08:00 Room Air 09/27/20 07:27 37.0 91 18 116/81 (93) 95 09/21/20 08:00 0.00 Capillary Refill : Less Than 3 Seconds General Appearance: No Apparent Distress, Thin Respiratory: Lungs Clear, No Respiratory Distress Cardiovascular: Regular Rate, Rhythm, No Murmur Neurologic/Psychiatric: Alert, Oriented x3 Results/Procedures Lab Patient resulted labs reviewed. Assessment/Plan Assessment and Plan Assess & Plan/Chief Complaint Debility due to COVID19 doing very well s/p Regeneron 09/20 No other COVID treatment indicated at this time PT/OT Doing well, unable to go home as family is admitted with COVID and she is unable to care for herself at home Can come out of isolation today but facilities apparently have different parameters for when they can take COVID patients and she is unable to discharge today Appreciate all of social works work to facilitate discharge HTN HLD Continue home meds DVT ppx: Lovenox Diagnosis/Problems Diagnosis/Problems (1) COVID-19 Status: Acute (2) Physical debility Status: Acute ALON STEVE MD Sep 27, 2020 11:59
[2020-09-27] MEDS: ENOXAPARIN 30 MG/0.3 ML (LOVENOX) SYR SC SCH (13:17)
--- NOTE | 2020-09-27 14:31 | Occ Therapy Progress Note ---
Therapy Progress Note OT visits pt. Pt. in bed. Declines OOB activity with OT. OT offers to assist pt. to shower. Pt. states that she will wait until she goes home. OT states that she is unaware of when this may be, and that it could be awhile, depending. Pt. continues to decline. OT offers to assist pt. in room to ambulate, exercise, change into gown, anything. Pt. states, "that other lady said I didn't need it anymore." OT asks if she meant PT. She does. Pt. states that she is going to bathroom on her own, ambulating in room on her own. OT confirms this with nurse aide and PT. Pt. independent in room with her walker. She is able to toilet self and don LE clothing. No further OT needs at this time. 1, visit x 10minutes [id number] DELROY MONZON OT Sep 27, 2020 14:31
[2020-09-27 16:00] VITALS: BP 108/59
[2020-09-27 19:59] VITALS: BP 113/62
[2020-09-28 00:43] VITALS: BP 123/64
[2020-09-28 08:06] VITALS: BP 115/73
[2020-09-28] MEDS: meTOprolol TARTRATE 25 MG (LOPRESSOR) TABLET PO SCH ×2 (09:12→19:58)
[2020-09-28] MEDS: ASPIRIN E.C. 325 MG (ECOTRIN) TABLET PO SCH (09:12)
[2020-09-28] MEDS: MELOXICAM 7.5 MG (MOBIC) TABLET PO SCH (09:12)
--- NOTE | 2020-09-28 11:52 | Physical Therapy Daily Note ---
PT Daily Note-Current Subjective Patient agrees to PT. Mental Status Patient Orientation: Normal For Age Transfers SCALE: Activities may be completed with or without assistive devices. 6-Unxycszdyl-lqrfaye completes the activity by him/herself with no assistance from a helper. 5-Set-up or Clean-up Assistance-helper sets up or cleans up; patient completes activity. [place] assists only prior to or following the activity. 4-Supervision or Touching Assistance-helper provides verbal cues and/or touching/steadying and/or contact guard assistance as patient completes activity. Assistance may be provided throughout the activity or intermittently. 3-Partial/Moderate Assistance-helper does LESS THAN HALF the effort. [place] lifts, holds or supports trunk or limbs, but provides less than half the effort. 2-Substantial/Maximal Assistance-helper does MORE THAN HALF the effort. [place] lifts or holds trunk or limbs and provides more than half the effort. 8-Vqwqwhgdu-yuxiue does ALL the effort. Patient does none of the effort to complete the activity. Or, the assistance of 2 or more helpers is required for the patient to complete the activity. If activity was not attempted, code reason: 7-Patient Refused. 9-Not Applicable-not attempted and the patient did not perform the activity befo re the current illness, exacerbation or injury. 10-Not Attempted due to Environmental Limitations-(lack of equipment, weather re straints, etc.). 88-Not Attempted due to Medical Conditions or Safety Concerns. Lying to Sitting/Side of Bed(Q: 6 Sit to Stand (QC): 6 Chair/Jdm-zw-Ppnyi Xfer(QC): 6 Gait Training Does the Patient Walk?: Yes Distance: 300' Walk 10 feet (QC): 5 Walk 50 ft with 2 Turns(QC): 5 Walk 150 ft (QC): 5 Gait Assistive Device: FWW safe and functional with no deviation Assessment Patient up in recliner with needs met. PT Short Term Goals Short Term Goals Time Frame: Sep 23, 2020 PT Parking Cashier Goals Parking Cashier Goals PT Skilled Nursing Goals Time Frame: Oct 02, 2020 Roll Left & Right (QC): 6 Sit to Lying (QC): 6 Lying-Sitting on Side/Bed(QC): 6 Sit to Stand (QC): 6 Chair/Mkl-eq-Kfhjt Xfer(QC): 6 Toilet Transfer (QC): 6 Does the Patient Walk: Yes Walk 10 feet (QC): 6 Walk 50ft with 2 Turns (QC): 6 Walk 150 ft (QC): 6 PT Plan Treatment/Plan Treatment Plan: Continue Plan of Care Treatment Plan: Bed Mobility, Education, Functional Activity Jacob, Functional Strength, Gait, Safety, Therapeutic Exercise, Transfers Treatment Duration: Oct 02, 2020 Frequency: 5 times per week Estimated Hrs Per Day: .25 hour per day Patient and/or Family Agrees t: Yes Time/GCodes Time In: 1111 Time Out: 1124 Total Billed Treatment Time: 13 Total Billed Treatment 1 visit FA 13 min STEFANO CHAUDHARY PT Sep 28, 2020 11:52
--- NOTE | 2020-09-28 12:06 | Progress Note - Hospitalist ---
Subjective HPI/CC On Admission Date Seen by Provider: Sep 28, 2020 Time Seen by Provider: 09:40 Pt is an 80yoCF HTN, HLD who presented to the ER due to SOB, cough, and weakness. She reports her symptoms started about 5 days ago. She has family members positive for COVID19 and was tested yesterday and is positive. She is unvaccinated against COVID. She has been quite weak and unable to care for herself at home. She was admitted due to her debility. She is not currently hypoxic. She feels better since yesterday and has no specific complaints. Subjective/Events-last exam She is doing well today. She has been up and moving around. She has no complaints or concerns. Objective Exam Vital Signs Vital Signs Date Time Temp Pulse Resp B/P (MAP) Pulse Ox O2 Delivery O2 Flow Rate FiO2 09/28/20 08:06 35.8 63 18 115/73 (87) 95 Room Air Capillary Refill : Less Than 3 Seconds General Appearance: No Apparent Distress, Chronically ill Respiratory: Lungs Clear, Normal Breath Sounds, No Respiratory Distress Cardiovascular: Regular Rate, Rhythm, No Edema, No Murmur Gastrointestinal: Normal Bowel Sounds, Non Tender, Soft Extremity: Normal Inspection, Non Tender, No Pedal Edema Neurologic/Psychiatric: Alert, Oriented x3, Normal Mood/Affect Skin: Normal Color, Warm/Dry Results/Procedures Lab Patient resulted labs reviewed. Assessment/Plan Assessment and Plan Assess & Plan/Chief Complaint Debility COVID-19 Status post monoclonal antibody infusion No supplemental oxygen requirement Removed from isolation PT/OT Social work assisting with placement Planning for discharge to [facility] tomorrow Hypertension Hyperlipidemia Continue home meds DVT prophylaxis: Lovenox Diagnosis/Problems Diagnosis/Problems (1) Physical debility Status: Acute (2) COVID-19 Status: Resolved Resolution Date/Time: 09/28/20 @ 12:06 KAT IQBAL MD Sep 28, 2020 12:06
--- NOTE | 2020-09-28 12:09 | Discharge Inst-Skilled Nursing ---
Discharge Inst-Skilled NF Reconcile Patient Problems Problems Reviewed?: Yes Consult/Follow Up/Orders Follow Up Appt.: next [facility] rounds [facility] I certify that SNF services are required to be given on an inpatient basis because of the above named patient's need for fpc care on a continuing basis for the conditions(s) for which he/she was receiving inpatient hospital services prior to his/her transfer to the SNF. [facility] Order: Nursing Services, Retail Operations Manager-Evaluate & Treat, Physical Therapy-Evaluate & Treat, Speech Language-Evaluate & Treat Oxygen Delivery Method: Room Air Discharge Diet: No Restrictions Daily Activity as Tolerated: Yes Resuscitation Status: Do Not Resuscitate New & Resume Previous Orders Kat Iqbal Sep 28, 2020 12:07 KAT IQBAL MD Sep 28, 2020 12:08
[2020-09-28] MEDS: ENOXAPARIN 30 MG/0.3 ML (LOVENOX) SYR SC SCH (13:18)
[2020-09-28 16:22] VITALS: BP 106/71
[2020-09-28 19:56] VITALS: BP 116/57
[2020-09-29 00:19] VITALS: BP 143/81
[2020-09-29 08:04] VITALS: BP 133/76
[2020-09-29] MEDS: ASPIRIN E.C. 325 MG (ECOTRIN) TABLET PO SCH (08:19)
[2020-09-29] MEDS: meTOprolol TARTRATE 25 MG (LOPRESSOR) TABLET PO SCH (08:19)
[2020-09-29] MEDS: MELOXICAM 7.5 MG (MOBIC) TABLET PO SCH (08:19)
--- NOTE | 2020-09-29 19:39 | Discharge Summary ---
Discharge Summary Hospital Course Was the Problem List Reviewed?: Yes Problems/Dx: (1) Physical debility Status: Acute (2) COVID-19 Status: Resolved Hospital Course Date of Admission: Sep 19, 2020 at 16:35 Admission Diagnosis : Debility, COVID-19 Family Physician/Provider: Codie,Local Physician Date of Discharge: 09/29/20 Discharge Diagnosis: Debility, COVID-19 Hospital Course: Joi Bergman is an 80 year old female admitted with debility and COVID-19. She was not requiring supplemental oxygen. She was given a monoclonal antibody infusion. She was also debilitated. PT and OT worked with her during her stay. She was discharged to [facility]. Labs and Pending Lab Test: Microbiology 09/19/20 Urine Culture - Final, Complete Escherichia coli Proteus mirabilis Strep, Beta Hemolytic Group B Home Meds Active Reported Docusate Sodium 100 Mg Capsule 100-200 Mg PO DAILY PRN Tylenol Extra Strength (Acetaminophen) 500 Mg Tablet 1,000 Mg PO Q8H PRN Aspirin EC (Aspirin) 325 Mg Tablet.dr 325 Mg PO DAILY Ferrous Gluconate 324 Mg Tablet 324 Mg PO DAILY Meloxicam 15 Mg Tablet 15 Mg PO DAILY Metoprolol Tartrate 25 Mg Tablet 12.5 Mg PO BID TAKES OF A 25MG TAB Lipitor (Atorvastatin Calcium) 20 Mg Tablet 20 Mg PO DAILY Assessment/Pt Instructions Take medications as prescribed. Follow up with your PCP. Return with worsening symptoms. Discharge Planning: <30 minutes discharge planning Discharge Instructions Discharge Diet: No Restrictions Activity as Tolerated: Yes Discharge Physical Examination Vital Signs Vital Signs Date Time Temp Pulse Resp B/P (MAP) Pulse Ox O2 Delivery O2 Flow Rate FiO2 09/29/20 10:22 09/29/20 10:03 Room Air 09/29/20 08:04 36.0 61 18 98 Allergies: Coded Allergies: No Known Drug Allergies (Unverified , 09/19/20) Discharge Summary Date of Admission Sep 19, 2020 at 16:35 Date of Discharge Sep 29, 2020 at 10:20 Discharge Date: Sep 29, 2020 Discharge Time: 10:20 Admission Diagnosis Debility due to COVID19 Discharge Diagnosis Debility COVID-19 (1) Physical debility Status: Acute (2) COVID-19 Status: Resolved KAT IQBAL MD Sep 29, 2020 19:39
== END 2020-09-29 10:20 ==
LOC: EDUNIT# 15:00 → ER 15:02 → 4TH 16:35
PROVIDERS: ADMIT Internal Medicine; ATTEND Internal Medicine
DX: U07.1 COVID-19 (principal); I10 Essential (primary) hypertension; E78.5 Hyperlipidemia, unspecified; R53.81 Other malaise; I82.409 Acute embolism and thrombosis of unspecified deep veins of unspecified lower extremity; Z79.899 Other long term (current) drug therapy; Z79.82 Long term (current) use of aspirin; Z87.891 Personal history of nicotine dependence
CPT/HCPCS: 80048; 80053; 81000; 84145; 85025 ×2; 85379; 86141; 87077; 87088; 87186; 87636; 94760; 96361; 96374; 97110; 97162; 97166; 97530 ×6; 97535 ×3; 99284; M0243; 36415; G0378